=== PATIENT | female | born 1995 | race Caucasian/White ===

== ENCOUNTER 2017-06-23 09:33 | Emergency (ER) | payer OTHER ==
[2017-06-23 10:20] VITALS: BP 108/72
--- NOTE | 2017-06-23 10:35 | UC ---
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 - History of Current Complaint Chief Complaint: UCUpperExtremity Stated Complaint: LEFT ARM/WRIST PAIN-WC Time Seen by Provider: 06/23/17 10:11 Hx Obtained From: Patient Hx Last Menstrual Period: unknown ?: No Onset/Duration: Days Severity Initially: Moderate Severity Currently: Moderate Location Of Pain: Is Discrete @ - medial epicondyle Character: Sharp, Aching, Throbbing Aggravating Factor(s): Movement, Twisting Alleviating Factor(s): Rest - Allergies/Home Medications Allergies/Adverse Reactions: Allergies Allergy/AdvReac Type Severity Reaction Status Date / Time No Known Allergies Allergy Verified 06/23/17 10:20 Home Medications: Home Medications Etonogestrel IMPLANT(NF) [Implanon (NF)-not available] 68 mg IMPLANT ONCE [History Confirmed 06/23/17] PMH/Surg Hx/FS Hx/Imm Hx Previously Healthy: Yes - Surgical History Surgical History: None - Family History Known Family History: Positive: Hypertension - Social History Alcohol Use: None Substance Use Type: None Smoking Status (MU): Light Every Day Tobacco Smoker Type: Cigarettes Amount Used/How Often: 2 per day Length of Time of Smoking/Using Tobacco: 3 Years Have You Smoked in the Last Year: Yes Household Exposure Type: Cigarettes - Immunization History Most Recent Influenza Vaccination: yes 2016 Review of Systems Constitutional: Negative Skin: Negative Eyes: Negative ENT: Negative Respiratory: Negative Cardiovascular: Negative Gastrointestinal: Negative Genitourinary: Negative Motor: Negative Neurovascular: Negative Musculoskeletal: Arthralgia, Decreased ROM, Myalgia Neurological: Negative Psychological: Negative Is Patient Immunocompromised?: No All Other Systems Reviewed And Are Negative: Yes Physical Exam Triage Information Reviewed: Yes Appearance: Well-Appearing, Well-Nourished, Pain Distress Vital Signs: Initial Vital Signs Temp 98.1 F 06/23/17 10:16 Pulse 71 06/23/17 10:16 Resp 14 06/23/17 10:16 BP 108/72 06/23/17 10:16 Pulse Ox 100 06/23/17 10:16 Vital Signs Reviewed: Yes Eye Exam: Normal ENT Exam: Normal ENT: Positive: Hearing grossly normal, Pharynx normal, TMs normal Dental Exam: Normal Neck exam: Normal Respiratory Exam: Normal Respiratory: Positive: Chest non-tender, Lungs clear, Normal breath sounds Cardiovascular Exam: Normal Cardiovascular: Positive: RRR, No Murmur, Pulses Normal Abdominal Exam: Normal Abdomen Description: Positive: Nontender, No Organomegaly, Soft Bowel Sounds: Positive: Present Musculoskeletal: Positive: ROM Intact, No Edema, Strength Limited @ - weaker with left elobw FLX than the right, ROM Limited @ Neurological Exam: Normal Psychological Exam: Normal Skin Exam: Normal Elbow Pain Course/Dx - Course Course Of Treatment: hx obtained, exam performed, meds reviewed, xray obtained. , neg for fracture - Differential Dx/Diagnosis Differential Diagnosis/HQI/PQRI: Bursitis, Contusion, Fracture (Closed), Sprain , Strain Provider Diagnoses: left elbow sprain Discharge - Discharge Plan Condition: Stable Disposition: HOME Patient Education Materials: Elbow Sprain (ED) Additional Instructions: 1. light duty for 1 week, 2. use proper body mechanics 3. take the melioxicam as ordered, do not take any additional aleve or ibuprofen while on meloxicam, you can use tylenol
--- NOTE | 2017-06-23 10:45 | RAD ---
HISTORY: Work injury, lifting injury, left elbow pain COMPARISONS: None VIEWS: 4, Frontal, lateral, and oblique views of the left elbow FINDINGS: BONE DENSITY: Normal. BONES: There is no displaced fracture. JOINTS: There is no arthropathy. There is no posterior supracondylar fat pad to suggest a joint effusion. ALIGNMENT: There is no dislocation. SOFT TISSUES: Unremarkable. OTHER FINDINGS: None. IMPRESSION: NO ACUTE OSSEOUS INJURY. IF SYMPTOMS PERSIST, RECOMMEND REPEAT IMAGING.
== END 2017-06-23 11:11 | disposition home or self-care (01) ==
LOC: UCCORT 09:33
DX: S53.402A Unspecified sprain of left elbow, initial encounter (principal); F17.210 Nicotine dependence, cigarettes, uncomplicated; X50.0XXA Overexertion from strenuous movement or load, initial encounter; X50.9XXA Other and unspecified overexertion or strenuous movements or postures, initial encounter; Y99.0 Civilian activity done for income or pay
CPT/HCPCS: 99212; G0463

== ENCOUNTER 2019-04-14 15:28 | Emergency (ER) | payer OTHER ==
--- OUTSIDE RECORDS SUMMARY | 2019-04-14 15:37 | XMS REPORT | Continuity of Care Document ---
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 Active Problems Provider Date Knee joint effusion Larisa Euceda MD Onset: 05/28/2018 Sprain of medial collateral ligament of knee Larisa Euceda MD Onset: 2017 Contusion of knee Larisa Euceda MD Onset: 06/11/2018 Radiculopathy, cervical region Astrid Min MD Onset: 02/03/2019 Lumbar radiculopathy Astrid Min MD Onset: 02/03/2019 Low back pain Astrid Min MD Onset: 02/03/2019 Backache Astrid Min MD Onset: 02/03/2019 Neck pain Astrid Min MD Onset: 02/03/2019 Other specific joint derangements of right hip, Larisa Euceda MD Onset: 12/19 not elsewhere classified Social History Type Date Description Comments Sex Unknown ETOH Use Denies alcohol use Tobacco Use Start: Unknown Patient is a current 1/2 pack per day smoker, smokes every day Smoking Status Reviewed: 04/11/19 Patient is a current 1/2 pack per day smoker, smokes every day Exercise Type/Frequency Exercises regularly Allergies, Adverse Reactions, Alerts Active Allergies Reaction Severity Comments Date Meloxicam 05/28/2018 Medications Active Medications SIG Qnty Indications Ordering Provider Date Lumbar Back lso back brace M54.5 Astrid Min MD 03/04/2019 Brace/Supportpad/Adjusta ble Misc M54.16 Lumbar Back LSO back brace M54.5 Astrid Min MD 02/24/2019 Brace/Supportpad/Adjustable Misc M54.16 Gabapentin take 1 cap by mouth 90caps M54.16 Astrid Min MD 02/03/2019 100mg Capsules before bed time. increase to 2 cap next week and to 3 cap in the 3rd week. B-2-400 one tab a day Unknown 400mg Capsules Magnesium Lactate one tab daily PO Unknown 84mg (7Meq) Tablets ER Sertraline HCL Take 1 Tablet By Unknown 50mg Tablets Mouth Nightly AT Bedtime History Medications No Active Medications Unknown 12/19/2018 - 02/03/2019 Medications Administered in Office Medication SIG Qnty Indications Ordering Provider Date Triamcinolone (Kenalog) Larisa Euceda MD 08/29/2018 Injection Immunizations Description No Information Available Vital Signs Date Vital Result Comment 04/11/2019 10:23am Height 62 inches 5'2" Weight 130.00 lb Heart Rate 71 /min BP Systolic 100 mmHg BP Diastolic 52 mmHg Body Temperature 98.2 F Pain Level 0 BMI (Body Mass Index) 23.8 kg/m2 12/19/2018 1:51pm Height 62 inches 5'2" Weight 130.00 lb Heart Rate 84 /min BP Systolic 112 mmHg BP Diastolic 70 mmHg Pain Level 8 BMI (Body Mass Index) 23.8 kg/m2 Results Test Date Facility Test Result H/L Range Note Xray 02/03/2019 [facility] SP Cervical 2-3 VWS <pending> [address] [place] [address] [phone] Xray 02/03/2019 [facility] Thoracic Spine 2 VWS <pending> [address] [place] [address] [phone] Xray 02/03/2019 [facility] SP Lumbarsacral 4+ VWS <pending> [address] [place] [address] [phone] Procedures Description No Information Available Medical Devices Description No Information Available Encounters Type Date Location Provider Dx Diagnosis Office Visit 02/03/2019 9:30a [facility] Min MD M54.2 Cervicalgia [facility] M54.12 Radiculopathy, cervical region M54.9 Dorsalgia, unspecified M54.5 Low back pain M54.16 Radiculopathy, lumbar region M54.6 Pain in thoracic spine Office Visit 12/19/2018 1:30p Orthopedic Larisa Euceda, S83.411D Sprain of medial Services Of collateral [facility] ligament of right knee, subs M24.851 Oth specific joint derangements of right hip, NEC Assessments Date Code Description Provider 02/03/2019 M54.2 Cervicalgia Astrid Min MD 02/03/2019 M54.12 Radiculopathy, cervical region Astrid Min MD 02/03/2019 M54.9 Dorsalgia, unspecified Astrid Min MD 02/03/2019 M54.5 Low back pain Astrid Min MD 02/03/2019 M54.16 Radiculopathy, lumbar region Astrid Min MD 02/03/2019 M54.6 Pain in thoracic spine Astrid Min MD 12/19/2018 S83.411D Sprain of medial collateral ligament of right Larisa Euceda MD knee, subseque 12/19/2018 M24.851 Other specific joint derangements of right hip, Larisa Euceda MD not elsewher Plan of Treatment Future Appointment(s):04/14/2019 11:30 am - Astrid Min MD at [facility] Functional Status Description No Information Available Mental Status Description No Information Available Referrals Refer to Reason for Referral Status Appt Date Germán Cisse MD low back pain Created [address] [place] [phone]
--- OUTSIDE RECORDS SUMMARY | 2019-04-14 15:37 | XMS REPORT | Continuity of Care Document ---
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 [phone] Problems Active Problems Provider Date Purulent otitis media Onset: 11/19/2015 Tobacco user Onset: 11/19/2015 Backache Onset: 03/12/2015 Tobacco user Onset: Social History Type Date Description Comments Sex Unknown Tobacco Use Start: Unknown Current Cigarette Smoker 5-10 Cigarettes Daily ETOH Use Denies alcohol use Recreational Drug Use Used Recreational Drugs In The Past Allergies, Adverse Reactions, Alerts Active Allergies Reaction Severity Comments Date Meloxicam Hives, Itching, Red + Hot Skin 02/25/2018 Inactive Allergies NKDA 03/30/2016 NKDA 02/25/2018 Medications Active Medications SIG Qnty Indications Ordering Provider Date Ciprodex 3-4 gtts bid in 15ml Fidencio Sparks, 02/25/2019 0.3-0.1% affected ear x 1 wk M.D. Suspension rebate: rxbin: [id number], rxpcn: [id number], rxgrp: [id number], coal chemist: [id number]), id# [id number] History Medications No Active Medications Unknown 01/14/2019 - 02/25/2019 Immunizations Description No Information Available Vital Signs Date Vital Result Comment 04/03/2019 11:21am Weight 120.00 lb Height 62 inches 5'2" BMI (Body Mass Index) 21.9 kg/m2 BP Systolic 112 mmHg BP Diastolic 76 mmHg Heart Rate 76 /min O2 % BldC Oximetry 99 % Body Temperature 98.5 F Pain Level 8 02/25/2019 9:15am Weight 120.00 lb Height 62 inches 5'2" BMI (Body Mass Index) 21.9 kg/m2 BP Systolic 100 mmHg BP Diastolic 64 mmHg Heart Rate 77 /min O2 % BldC Oximetry 99 % Body Temperature 98.4 F Pain Level 4 Results Description No Information Available Procedures Date Code Description Status 02/19/2019 49582 Tympanostomy, Gen. Anesth. 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 02/19/2019 H66.92 Otitis media, unspecified, left ear Marcos Yo MD 02/19/2019 H66.92 Otitis media, unspecified, left ear Fidencio Sparks M.D. 01/14/2019 H69.92 Unspecified Eustachian tube disorder, left ear Chanda Norris NP Plan of Treatment Future Appointment(s):04/18/2019 7:45 am - Fidencio Sparks M.D. at Main Office Functional Status Description No Information Available Mental Status Description No Information Available Referrals Refer to Reason for Referral Status Appt Date Fidencio Sparks M.D. NO AUTH REQ FOR SURGERY Created [address] [place] [address] [phone]
--- OUTSIDE RECORDS SUMMARY | 2019-04-14 15:37 | XMS REPORT | Continuity of Care Document ---
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 32mcg/Act Suspension () Ciprodex 3-4 drops twice a 15ml Fidencio Sparks, 02/25/2019 0.3-0.1% day in affected ear M.D. Suspension x 1 week rebate: rxbin: [id number], rxpcn: [id number], rxgrp: [id number], wafer polishing worker: [id number]), id# [id number] History Medications No Active Medications Unknown 01/14/2019 [...] Available Procedures Date Code Description Status 02/19/2019 50980 Tympanostomy, Gen. Anesth. 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 NO AUTH REQ FOR SURGERY Created [address] [place] [address] [phone]
[2019-04-14 15:42] VITALS: BP 97/57
--- NOTE | 2019-04-14 15:52 | UC ---
Dental HPI - HPI Summary HPI Summary: 23-year-old woman comes in with a chief complaint of dental swelling. Patient' s had an abscess adjacent to the left upper molars for over a month. She is treated initially with penicillin with some improvement. The swelling never completely went away. No fevers or chills. Feels well otherwise. is 6 weeks . - History of Current Complaint Chief Complaint: UCDentalProblem Stated Complaint: DENTAL CONCERN Time Seen by Provider: 04/14/19 15:37 Hx Last Menstrual Period: 03/02/19 Pain Intensity: 0 - Allergies/Home Medications Allergies/Adverse Reactions: Allergies Allergy/AdvReac Type Severity Reaction Status Date / Time meloxicam Allergy Hives Verified 04/14/19 15:42 Home Medications: Home Medications Magnesium Oxide [Magnesium] 1 tab PO DAILY 04/14/19 [History Confirmed 04/14/19] Riboflavin (Vitamin B2) [Vitamin B-2] 1 tab PO DAILY 04/14/19 [History Confirmed 04/14/19] PMH/Surg Hx/FS Hx/Imm Hx Previously Healthy: Yes - Surgical History Surgical History: Yes Surgery Procedure, Year, and Place: TUBE IN EAR. T&A - Family History Known Family History: Positive: Hypertension - Social History Alcohol Use: None Substance Use Type: None Smoking Status (MU): Light Every Day Tobacco Smoker Type: Cigarettes Amount Used/How Often: 1/2 pack per day Length of Time of Smoking/Using Tobacco: 3 Years Have You Smoked in the Last Year: Yes Household Exposure Type: Cigarettes - Immunization History Most Recent Influenza Vaccination: yes 2016 Review of Systems All Other Systems Reviewed And Are Negative: Yes Constitutional: Positive: Negative Skin: Positive: Negative Eyes: Positive: Negative ENT: Positive: Dental Pain Respiratory: Positive: Negative Cardiovascular: Positive: Negative Gastrointestinal: Positive: Negative Motor: Positive: Negative Neurovascular: Positive: Negative Musculoskeletal: Positive: Negative Neurological: Positive: Negative Psychological: Positive: Negative Is Patient Immunocompromised?: No Physical Exam Triage Information Reviewed: Yes Appearance: Well-Appearing, No Pain Distress, Well-Nourished Vital Signs: Initial Vital Signs Temp 99.9 F 04/14/19 15:36 Pulse 72 04/14/19 15:36 Resp 16 04/14/19 15:36 BP 97/57 04/14/19 15:36 Pulse Ox 100 08/19/19 15:36 Vital Signs Reviewed: Yes Eye Exam: Normal Eyes: Positive: Conjunctiva Clear ENT: Positive: Pharynx normal. Negative: Nasal drainage Dental: Positive: Abscess @ - LEFT UPPER, LATERAL TO THE MOLARS Neck: Positive: Supple Respiratory: Positive: No respiratory distress Musculoskeletal: Positive: Strength Intact, ROM Intact Neurological: Positive: Alert, Muscle Tone Normal Psychological: Positive: Age Appropriate Behavior Skin Exam: Normal Dental Complaint Course/Dx - Differential Dx/Diagnosis Provider Diagnosis: Dental abscess Discharge - Sign-Out/Discharge Documenting (check all that apply): Patient Departure All imaging exams completed and their final reports reviewed: No Studies - Discharge Plan Condition: Stable Disposition: HOME Prescriptions: Clindamycin Cap(NF) [Clindamycin Cap 300 mg Cap(NF)] 300 mg PO TID #30 cap Patient Education Materials: Dental Abscess (ED) Referrals: Milagros Savage NP [Primary Care Provider] - Additional Instructions: FOLLOW UP WITH YOUR DENTIST. GET REEVALUATED SOONER IF WORSE OR ANY QUESTIONS OR CONCERNS. - Billing Disposition and Condition Condition: STABLE Disposition: Home
== END 2019-04-14 15:57 | disposition home or self-care (01) ==
LOC: UCCORT 15:28
DX: K04.7 Periapical abscess without sinus (principal); Z88.6 Allergy status to analgesic agent; F17.210 Nicotine dependence, cigarettes, uncomplicated
CPT/HCPCS: 99212; G0463